=== PATIENT | female | born 1940 | race Caucasian/White ===

== ENCOUNTER → 2023-06-08 12:39 | Outpatient (CLI) | payer MEDICARE, SELFPAY ==
--- NOTE | ~2023-06-08 | MR_ITS ---
MRI of the lumbar spine Clinical History: Radiculopathy Technique: Axial T2-weighted images, and sagittal T1-weighted, T2-weighted, and T2 fat-sat images wer e acquired. Findings: No acute fracture seen. There is 5 mm retrolisthesis of L2 over L3. There is severe degener ative disc narrowing L2-L3. There is mild reactive marrow signal about the L2-L3 disc space due to un derlying degenerative disc disease. At L1-L2, there is no disc bulge or herniation. There is mild facet arthropathy. No central canal ketty nosis or neural foraminal narrowing. At L2-L3, there is mild disc bulge and mild facet arthropathy. No central canal stenosis. There is mi nimal left neural foraminal narrowing. Right neural foramen preserved. At L3-L4, there is minimal disc bulge with advanced facet arthropathy. No central canal stenosis. The re is preservation neural foramina. At L4-L5, there is diffuse disc bulge with severe facet arthropathy. No central canal stenosis. There is moderate right neural foraminal narrowing. Left neural foramen preserved. At L5-S1, there is minimal disc bulge and moderate to advanced facet arthropathy. No central canal st enosis. There is mild to moderate right neural foraminal narrowing. Left neural foramen preserved. Paravertebral soft tissues are unremarkable. Impression: 5 mm retrolisthesis of L2 over L3. Mild to possibly moderate degenerative spondylosis, as detailed above. Reviewed, dictated and finalized at [facility]. [facility] Impression: 5 mm retrolisthesis of L2 over L3. Mild to possibly moderate degenerative spondylosis, as detailed above.
== END ==
PROVIDERS: PCP Internal Medicine; Visit Provider Internal Medicine
DX: M43.16 Spondylolisthesis, lumbar region (principal)
CPT/HCPCS: 72148